=== PATIENT | female | born 1995 | race Caucasian/White ===

== ENCOUNTER 2017-02-26 07:20 | Emergency (ER) | payer OTHER ==
[~2017-02-26] VITALS: Ht 165.1 cm; Wt 57.0 kg
[2017-02-26] MEDS ORDERED: LEXAPRO20 MG PO (07:37)
[2017-02-26] MEDS ORDERED: PRENATAL TABLE1 EAC3 PO (07:37)
[2017-02-26] MEDS ORDERED: CLARITIN10 M3 PO (07:37)
[2017-02-26 09:48] VITALS: BP 134/76
== END 2017-02-26 09:49 | disposition home or self-care (01) ==
LOC: EME 07:20
DX: O20.0 Threatened abortion (principal); Z3A.09 9 weeks gestation of pregnancy
CPT/HCPCS: 86900; 86901; 99281; 99284